=== PATIENT | male | born 1950 | race African-American/Black ===

== ENCOUNTER 2018-12-04 10:45 | Inpatient (IN) | payer OTHER ==
--- NOTE | 2018-12-04 13:49 | HP ---
Screened but not Admitted - Documentation of Visit Screened but not Admitted: Yes Left Prior to Completion of Assessment: No Insurance Authorization Denied: No Level of Care Recommended at this Time: ER Evaluation/Care Additional Information/Explanation: this 67 years old male with history of alcohol dependence,present in [facility] for evaluation,patient is intoxicated,alter mental status,unable to give information,unsteady gait,emi is 0.435,bp 122/78, p90,r18,t98.8,. patient was transferred to er at [facility] for evaluation,treatment, stabilization,. to be transported by [facility],dr Pack informed, . need medical clearance
[2018-12-04 20:42] VITALS: BMI 27.3
--- NOTE | 2018-12-04 21:27 | HP ---
CIWA Score Nausea/Vomitin-Mild Nausea/No Vomiting Muscle Tremors: 6 Anxiety: 4-Mod. Anxious/Guarded Agitation: 4-Moderately Restless Paroxysmal Sweats: 3 Orientation: 2-Disoriented Date<2 days Tacttile Disturbances: 3-Moderate Itch/Numb/Burn Auditory Disturbances: 0-None Visual Disturbances: 2-Mild Sensitivity Headache: 2-Mild CIWA-Ar Total Score: 27 - Admission Criteria OASAS Guidelines: Admission for Medically Managed Detox: Requires at least one of the followin. CIWA greater than 12 2. Seizures within the past 24 hours 3. Delirium tremens within the past 24 hours 4. Hallucinations within the past 24 hours 5. Acute intervention needed for co occurring medical disorder 6. Acute intervention needed for co occurring psychiatric disorder 7. Severe withdrawal that cannot be handled at a lower level of care (continued vomiting, continued diarrhea, abnormal vital signs) requiring intravenous medication and/or fluids 8. Patient presents the following: Acute intervention needed for co-occurring med or psych disorder Admission Criteria Met: Admission criteria met Admission ROS [facility] Chief Complaint: SEEKING DETOX FOR C/O WORSENING WITHDRAWAL SX'S Allergies/Adverse Reactions: Allergies Allergy/AdvReac Type Severity Reaction Status Date / Time ibuprofen Allergy Severe Rash Verified 12/04/18 20:55 History of Present Illness: 67 Y.O. MALE WITH HX/O AQLCOHOLISM HERE FOR DETOX. CLIENT IS KNOWN TO THIS PROGRAM. LAST HERE 2014. PRESENT TODAY WITH C/O WORSENING WITHDRAWAL SX'S CIWA 27 AFTER RETURNING FROM [facility]. HE WAS SENT THERE EARLIER FOR ALCOHOL INTOXICATION [place] 0.435 REPEAT NOW 0.257, SLURRED SPEECH AND INABILITY TO WALK. HE HAS SINCE BEEN CLEARED AND RETURNED. REPORTS LONGEST CLEAN TIME 5 YEARS, RELAPSING ABOUT 5 YEARS AGO. DENIES ANY RECENT CLEAN TIME. PMHX- HTN, PACE MAKER , DEPRESSION. DENIES PAST/PRESNT SI/HI, AVH AND SEIZURE D/O. CURRENTLY LIVES WITH [place], SSI., DENIES LEGALS. Exam Limitations: No Limitations - Ebola screening Have you traveled outside of the country in the last 21 days: No Have you had contact with anyone from an Ebola affected area: No Have you been sick,other than usual withdrawal symptoms: No Do you have a fever: No - Review of Systems Constitutional: Chills, Loss of Appetite, Night Sweats, Changes in sleep, Weakness (GENERALIZED) EENT: reports: Blurred Vision (WEARS EYE GLASSES), Dental Problems (MISSING TEETH) Respiratory: reports: No Symptoms reported Cardiac: reports: No Symptoms Reported GI: reports: Nausea, Poor Appetite, Poor Fluid Intake, Vomiting : reports: No Symptoms Reported Musculoskeletal: reports: Joint Pain Integumentary: reports: Flushing Neuro: reports: Headache, Numbness, Tingling, Tremors, Weakness (BLE), Unsteady Gait (AMBUALTES WITH CANE) Endocrine: reports: No Symptoms Reported Hematology: reports: No Symptoms Reported Psychiatric: reports: Orientated x3, Anxious, Depressed Other Systems: Reviewed and Negative Patient History - Patient Medical History Hx Anemia: No Hx Asthma: No Hx Chronic Obstructive Pulmonary Disease (COPD): No Hx Cancer: No Hx Cardiac Disorders: Yes (pacemaker in place) Hx Congestive Heart Failure: No Hx Hypertension: Yes (norvasc) Hx Hypercholesterolemia: No Hx Pacemaker: Yes (for bradycardia sine [address] [facility]) HX Cerebrovascular Accident: No Hx Seizures: No Hx Dementia: No Hx Diabetes: No Hx Gastrointestinal Disorders: No Hx Liver Disease: No Hx Genitourinary Disorders: No Hx Sexually Transmitted Disorders: No Hx Renal Disease (ESRD): No Hx Thyroid Disease: No Hx Human Immunodeficiency Virus (HIV): No (last 12/21/13) Hx Hepatitis C: Yes (tx'ed 2 yrs ago ( Treated for it with interferon))) Hx Depression: Yes Hx Suicide Attempt: No Hx Bipolar Disorder: No Hx Schizophrenia: No - Patient Surgical History Past Surgical History: Yes Hx Neurologic Surgery: No Hx Cataract Extraction: No Hx Cardiac Surgery: Yes (PACE MAKER, 1997, 2005) Hx Lung Surgery: No Hx Breast Surgery: No Hx Breast Biopsy: No Hx Abdominal Surgery: No Hx Appendectomy: No Hx Cholecystectomy: No Hx Genitourinary Surgery: No Hx Section: No Hx Orthopedic Surgery: No Anesthesia Reaction: No - PPD History Previous Implant?: Yes Documented Results: Positive w/proof Implanted On Prior R Admission?: Yes Date: 11/14/12 Results: POSITIVE PPD to be Administered?: No - Smoking Cessation Smoking history: Former smoker Have you smoked in the past 12 months: No Aproximately how many cigarettes per day: 0 If you are a former smoker, when did you quit?: 10 YEARS AGO Cigars Per Day: 0 Hx Chewing Tobacco Use: No Initiated information on smoking cessation: No - Substance & Tx. History Hx Alcohol Use: Yes Hx Substance Use: Yes Substance Use Type: Alcohol Hx Substance Use Treatment: Yes ([facility]) - Substances Abused Alcohol Route: Oral Frequency: Daily Amount used: 6 CANS OF BEER, 3 PINTS OF VODKA Age of first use: 17 Date of Last Use: 12/04/18 Family Disease History - Family Disease History Family Disease History: Diabetes: Brother, Heart Disease: Brother, Other: Sister (alcoholic) Admission Physical Exam [facility] - Vital Signs Vital Signs: Vital Signs - 24 hr 12/04/18 20:35 Temperature 98.8 F Pulse Rate 93 H Respiratory 18 Rate Blood Pressure 132/84 - Physical General Appearance: Yes: Appropriately Dressed, Moderate Distress, Tremorous, Irritable, Sweating (FLUSHED), Anxious, Other (MALODUROUS) HEENTM: Yes: EOMI, Normocephalic, Normal Voice, NITIN, Pharynx Normal, Other ( POOR DENTITION) Respiratory: Yes: Chest Non-Tender, Lungs Clear, Normal Breath Sounds, No Respiratory Distress, No Accessory Muscle Use, Other (LEFT C/W PACEMEAKER) Neck: Yes: No masses,lesions,Nodules, Supple, Trachea in good position Breast: Yes: Breast Exam Deferred Cardiology: Yes: Regular Rhythm, Regular Rate, S1, S2 Abdominal: Yes: Normal Bowel Sounds, Non Tender, Soft Genitourinary: Yes: Other (NO C/O) Back: Yes: Normal Inspection Musculoskeletal: Yes: full range of Motion, Joint Stiffness, Other (UNSTEADY GAIT AMBUALTED WITH CANE) Extremities: Yes: Normal Capillary Refill, Normal Range of Motion, Non-Tender, Tremors Neurological: Yes: Fully Oriented, Alert, Depressed Affect Integumentary: Yes: Warm, Other (FLUSHED) Lymphatic: Yes: Within Normal Limits - Diagnostic (1) Alcohol dependence with uncomplicated withdrawal Current Visit: Yes Status: Acute (2) History of positive PPD Current Visit: Yes Status: Acute (3) Pacemaker Current Visit: Yes Status: Acute (4) At risk for dehydration due to poor fluid intake Current Visit: Yes Status: Acute (5) Substance induced mood disorder Current Visit: Yes Status: Acute (6) Essential hypertension Current Visit: No Status: Active Cleared for Admission [facility] - Detox or Rehab [facility] Level of Care: Medically Managed Detox Regimen/Protocol: Librium Claeared for Rehab Admission: No [facility] Breath Alcohol Content Breath Alcohol Content: 0.257 Urine Drug Screen - Results Drug Screen Negative: Yes
[2018-12-04] MEDS ORDERED: MAGNESIUM HYDROX 2400MG/30ML ORAL SUSPENSION 30 ML CUP PO PRN (21:44)
[2018-12-04] MEDS ORDERED: P-EPHED 60MG/TRIPROLIDI 2.5MG TABLET PO PRN (21:44)
[2018-12-04] MEDS ORDERED: MENTHOL/PHENOL 1 EACH UD MM PRN (21:44)
[2018-12-04] MEDS ORDERED: MAG HYDROX/AL HYDROX/SIMETH 30 ML UNIT-DOSE CUP PO PRN (21:44)
[2018-12-04] MEDS ORDERED: LOPERAMIDE HCL 2 MG CAPSULE PO PRN (21:44)
[2018-12-04] MEDS ORDERED: guaiFENesin/D-METHORPHAN HB 10 ML UNIT-DOSE CUPS PO PRN (21:44)
[2018-12-04] MEDS ORDERED: MAGNESIUM CITRATE 300 ML BOTTLE PO PRN (21:44)
[2018-12-04] MEDS ORDERED: MELATONIN 5 MG TABLETS PO PRN (22:00)
[2018-12-04] MEDS: chlordiazePOXIDE HCL 25 MG CAPSULE PO SCH (22:37)
[2018-12-04] MEDS: ACETAMINOPHEN 325 MG TABLET (FP) PO PRN (22:39)
[2018-12-04] MEDS: THIAMINE HCL 100 MG TABLET (FP) PO SCH (22:46)
[2018-12-05] MEDS: chlordiazePOXIDE HCL 25 MG CAPSULE PO PRN (03:09)
[2018-12-05 04:39] LABS: URINE APPEARANCE CLEAR; URINE BILIRUBIN NEGATIVE (<2.0 mg/dL); URINE COLOR LTYELLOW; URINE GLUCOSE (UA) NEGATIVE (NEGATIVE); URINE KETONE NEGATIVE (NEGATIVE); URINE LEUK ESTERASE NEGATIVE (NEGATIVE); URINE NITRITE NEGATIVE (NEGATIVE); URINE PROTEIN NEGATIVE (NEGATIVE); URINE UROBILINOGEN NEGATIVE mg/dL (0.2-1.0)
[2018-12-05] MEDS: chlordiazePOXIDE HCL 25 MG CAPSULE PO SCH ×4 (05:14→22:14)
[2018-12-05] MEDS: ACETAMINOPHEN 325 MG TABLET (FP) PO PRN (07:28)
[2018-12-05] MEDS: hydrOXYzine PAMOATE 50 MG CAPSULE (FP) PO PRN (07:30)
[2018-12-05 10:32] LABS: HEMATOCRIT 42.5 % (35.4-49); HEMOGLOBIN 14.3 GM/dL (11.7-16.9); MCH 29.1 pg (25.7-33.7); MCHC 33.6 g/dl (32.0-35.9); MEAN CELL VOLUME 86.7 fl (80-96); MEAN PLT VOLUME 7.9 fl (7.5-11.1); PLATELET COUNT 231 K/MM3 (134-434); RBC 4.91 M/mm3 (4.00-5.60); RDW 15.4 % (11.9-15.9); WHITE BLOOD COUNT 3.2 K/mm3 (4.0-10.0)
[2018-12-05 10:49] LABS: ALBUMIN 4.1 g/dl (3.4-5.0); ALK PHOS 84 U/L (45-117); ANION GAP 7 MMOL/L (8-16); BILIRUBIN,TOTAL 0.5 mg/dL (0.2-1); BLOOD UREA NITROGEN 11 mg/dL (7-18); CALCIUM 9.6 mg/dL (8.5-10.1); CHLORIDE 107 mmol/L (98-107); CO2 32 mmol/L (21-32); CREATININE 0.7 mg/dL (0.55-1.3); GLUCOSE,RANDOM 78 mg/dL (74-106); POTASSIUM 4.1 mmol/L (3.5-5.1); SGOT/AST 19 U/L (15-37); SGPT/ALT 17 U/L (13-61); SODIUM 146 mmol/L (136-145); TOT PROT 7.8 g/dl (6.4-8.2)
[2018-12-05] MEDS: PRENATAL VITAMINS W/ FOLIC ACID TABLET (FP) PO SCH (10:56)
--- NOTE | 2018-12-05 14:18 | EKG ---
Test Reason : Blood Pressure : / mmHG Vent. Rate : 085 BPM Atrial Rate : 085 BPM P-R Int : 154 ms QRS Dur : 070 ms QT Int : 370 ms P-R-T Axes : 054 -24 013 degrees QTc Int : 440 ms POOR DATA QUALITY, INTERPRETATION MAY BE ADVERSELY AFFECTED NORMAL SINUS RHYTHM NORMAL ECG NO PREVIOUS ECGS AVAILABLE Confirmed by MADISYN SAM MD ([id number]) on 12/05/2018 2:17:58 PM Referred By: Confirmed By:MADISYN SAM MD
--- NOTE | 2018-12-05 16:29 | PN ---
S CIWA - CIWA Score Nausea/Vomitin-No Nausea/No Vomiting Muscle Tremors: 3 Anxiety: 0-No Anxiety, at Ease Agitation: 0-Normal Activity Paroxysmal Sweats: 3 Orientation: 2-Disoriented Date<2 days Tacttile Disturbances: 2-Mild Itch/Numbness/Burn Auditory Disturbances: 0-None Visual Disturbances: 0-None Headache: 3-Moderate CIWA-Ar Total Score: 13 S Progress Note (SOAP) Subjective: Interrupted Sleep, H/A, Body Aches, Sweating, Tremors. Objective: PATIENT A & O X 2 (UNCERTAIN ABOUT CURRENT DAY / DATE). PATIENT OBSERVED AMBULATING ON UNIT. IN NO ACUTE DISTRESS. 12/05/18 16:30 Vital Signs Temperature 98.1 F 12/05/18 13:24 Pulse Rate 76 12/05/18 13:30 Respiratory Rate 18 12/05/18 13:24 Blood Pressure 97/66 12/05/18 13:24 O2 Sat by Pulse Oximetry (%) Laboratory Tests 12/04/18 12/05/18 12/05/18 21:51 07:00 07:00 WBC 3.2 L RBC 4.91 Hgb 14.3 Hct 42.5 MCV 86.7 MCH 29.1 MCHC 33.6 RDW 15.4 Plt Count 231 MPV 7.9 Sodium 146 H Potassium 4.1 Chloride 107 Carbon Dioxide 32 Anion Gap 7 L BUN 11 Creatinine 0.7 Creat Clearance w eGFR > 60 Random Glucose 78 Calcium 9.6 Total Bilirubin 0.5 AST 19 ALT 17 Alkaline Phosphatase 84 Total Protein 7.8 Albumin 4.1 Urine Color Ltyellow Urine Appearance Clear Urine pH 5.0 Ur Specific [place] 1.010 Urine Protein Negative Urine Glucose (UA) Negative Urine Ketones Negative Urine Blood Negative Urine Nitrite Negative Urine Bilirubin Negative Urine Urobilinogen Negative Ur Leukocyte Esterase Negative RPR Titer 12/05/18 07:00 WBC RBC Hgb Hct MCV MCH MCHC RDW Plt Count MPV Sodium Potassium Chloride Carbon Dioxide Anion Gap BUN Creatinine Creat Clearance w eGFR Random Glucose Calcium Total Bilirubin AST ALT Alkaline Phosphatase Total Protein Albumin Urine Color Urine Appearance Urine pH Ur Specific [place] Urine Protein Urine Glucose (UA) Urine Ketones Urine Blood Urine Nitrite Urine Bilirubin Urine Urobilinogen Ur Leukocyte Esterase RPR Titer Nonreactive LABS NOTED. PATIENT HAS HAD LOW WBC COUNTS ON PREVIOUS ADMISSIONS. 12/05/18 16:32 Assessment: 12/05/18 16:31 WITHDRAWAL SYMPTOMS. LEUKOPENIA. 12/05/18 16:32 Plan: CONTINUE DETOX.
[2018-12-05] MEDS: THIAMINE HCL 100 MG TABLET (FP) PO SCH (22:14)
[2018-12-06] MEDS: chlordiazePOXIDE HCL 25 MG CAPSULE PO SCH ×3 (05:30→17:21)
[2018-12-06] MEDS: PRENATAL VITAMINS W/ FOLIC ACID TABLET (FP) PO SCH (10:25)
[2018-12-06] MEDS: chlordiazePOXIDE HCL 25 MG CAPSULE PO PRN (12:06)
--- NOTE | 2018-12-06 13:26 | PN ---
S CIWA - CIWA Score Nausea/Vomitin Muscle Tremors: 3 Anxiety: 2 Agitation: 1-Slight > Activity Paroxysmal Sweats: 2 Orientation: 0-Oriented Tacttile Disturbances: 1-Very Mild Itch/Numbness Auditory Disturbances: 0-None Visual Disturbances: 0-None Headache: 0-None Present CIWA-Ar Total Score: 11 S Progress Note (SOAP) Subjective: interrupted sleep, sweats, soft stool Objective: 12/06/18 13:25 Vital Signs Temperature 97.7 F 12/06/18 09:46 Pulse Rate 73 12/06/18 09:46 Respiratory Rate 18 12/06/18 09:46 Blood Pressure 111/72 12/06/18 09:46 O2 Sat by Pulse Oximetry (%) Vital Signs Temperature 97.7 F 12/06/18 09:46 Pulse Rate 73 12/06/18 09:46 Respiratory Rate 18 12/06/18 09:46 Blood Pressure 111/72 12/06/18 09:46 O2 Sat by Pulse Oximetry (%) Vital Signs Temperature 97.7 F 12/06/18 09:46 Pulse Rate 73 12/06/18 09:46 Respiratory Rate 18 12/06/18 09:46 Blood Pressure 111/72 12/06/18 09:46 O2 Sat by Pulse Oximetry (%) 12/06/18 13:26 Laboratory Tests 12/04/18 12/05/18 12/05/18 21:51 07:00 07:00 WBC 3.2 L RBC 4.91 Hgb 14.3 Hct 42.5 MCV 86.7 MCH 29.1 MCHC 33.6 RDW 15.4 Plt Count 231 MPV 7.9 Sodium 146 H Potassium 4.1 Chloride 107 Carbon Dioxide 32 Anion Gap 7 L BUN 11 Creatinine 0.7 Creat Clearance w eGFR > 60 Random Glucose 78 Calcium 9.6 Total Bilirubin 0.5 AST 19 ALT 17 Alkaline Phosphatase 84 Total Protein 7.8 Albumin 4.1 Urine Color Ltyellow Urine Appearance Clear Urine pH 5.0 Ur Specific [place] 1.010 Urine Protein Negative Urine Glucose (UA) Negative Urine Ketones Negative Urine Blood Negative Urine Nitrite Negative Urine Bilirubin Negative Urine Urobilinogen Negative Ur Leukocyte Esterase Negative RPR Titer 12/05/18 07:00 WBC RBC Hgb Hct MCV MCH MCHC RDW Plt Count MPV Sodium Potassium Chloride Carbon Dioxide Anion Gap BUN Creatinine Creat Clearance w eGFR Random Glucose Calcium Total Bilirubin AST ALT Alkaline Phosphatase Total Protein Albumin Urine Color Urine Appearance Urine pH Ur Specific [place] Urine Protein Urine Glucose (UA) Urine Ketones Urine Blood Urine Nitrite Urine Bilirubin Urine Urobilinogen Ur Leukocyte Esterase RPR Titer Nonreactive pt aox3 in nad, sitting in bed eatting breakfast Assessment: 12/06/18 13:27 withdrawal sx's Plan: cont. detox increase fluids
[2018-12-06] MEDS: hydrOXYzine PAMOATE 50 MG CAPSULE (FP) PO PRN (22:13)
[2018-12-06] MEDS: chlordiazePOXIDE 5 MG CAPSULE PO SCH (22:14)
[2018-12-06] MEDS: THIAMINE HCL 100 MG TABLET (FP) PO SCH (22:15)
[2018-12-07] MEDS: hydrOXYzine PAMOATE 50 MG CAPSULE (FP) PO PRN ×3 (02:13→15:24)
[2018-12-07] MEDS: chlordiazePOXIDE 5 MG CAPSULE PO SCH ×3 (05:29→16:46)
[2018-12-07] MEDS: PRENATAL VITAMINS W/ FOLIC ACID TABLET (FP) PO SCH (10:04)
--- NOTE | 2018-12-07 10:52 | PN ---
S CIWA - CIWA Score Nausea/Vomitin Muscle Tremors: 2 Anxiety: 2 Agitation: 2 Paroxysmal Sweats: 1-Minimal Palms Moist Orientation: 1-Uncertain about Date Tacttile Disturbances: 2-Mild Itch/Numbness/Burn Auditory Disturbances: 1-Very Mild Visual Disturbances: 1-Very Mild Sensitivity Headache: 1-Very Mild CIWA-Ar Total Score: 15 BHS Progress Note (SOAP) Subjective: Irritable and anxious about staying, requesting AMA, chronic knee pain, mild tremors and interrupted sleep Objective: 12/07/18 10:49 Vital Signs 12/07/18 12/07/18 06:41 09:17 Temperature 96.8 F L 97.7 F Pulse Rate 77 84 Respiratory 20 16 Rate Blood Pressure 133/98 118/79 Laboratory Last Values WBC 3.2 K/mm3 (4.0-10.0) L 12/05/18 07:00 RBC 4.91 M/mm3 (4.00-5.60) 12/05/18 07:00 Hgb 14.3 GM/dL (11.7-16.9) 12/05/18 07:00 Hct 42.5 % (35.4-49) 12/05/18 07:00 MCV 86.7 fl (80-96) 12/05/18 07:00 MCH 29.1 pg (25.7-33.7) 12/05/18 07:00 MCHC 33.6 g/dl (32.0-35.9) 12/05/18 07:00 RDW 15.4 % (11.9-15.9) 12/05/18 07:00 Plt Count 231 K/MM3 (134-434) 12/05/18 07:00 MPV 7.9 fl (7.5-11.1) 12/05/18 07:00 Sodium 146 mmol/L (136-145) H 12/05/18 07:00 Potassium 4.1 mmol/L (3.5-5.1) 12/05/18 07:00 Chloride 107 mmol/L (98-107) 12/05/18 07:00 Carbon Dioxide 32 mmol/L (21-32) 12/05/18 07:00 Anion Gap 7 MMOL/L (8-16) L 12/05/18 07:00 BUN 11 mg/dL (7-18) 12/05/18 07:00 Creatinine 0.7 mg/dL (0.55-1.3) 12/05/18 07:00 Creat Clearance w eGFR > 60 (>60) 12/05/18 07:00 Random Glucose 78 mg/dL (74-106) 12/05/18 07:00 Calcium 9.6 mg/dL (8.5-10.1) 12/05/18 07:00 Total Bilirubin 0.5 mg/dL (0.2-1) 12/05/18 07:00 AST 19 U/L (15-37) 12/05/18 07:00 ALT 17 U/L (13-61) 12/05/18 07:00 Alkaline Phosphatase 84 U/L (45-117) 12/05/18 07:00 Total Protein 7.8 g/dl (6.4-8.2) 12/05/18 07:00 Albumin 4.1 g/dl (3.4-5.0) 12/05/18 07:00 Urine Color Ltyellow 12/04/18 21:51 Urine Appearance Clear 12/04/18 21:51 Urine pH 5.0 (5.0-8.0) 12/04/18 21:51 Ur Specific [place] 1.010 (1.010-1.035) 12/04/18 21:51 Urine Protein Negative (NEGATIVE) 12/04/18 21:51 Urine Glucose (UA) Negative (NEGATIVE) 12/04/18 21:51 Urine Ketones Negative (NEGATIVE) 12/04/18 21:51 Urine Blood Negative (NEGATIVE) 12/04/18 21:51 Urine Nitrite Negative (NEGATIVE) 12/04/18 21:51 Urine Bilirubin Negative (<2.0 mg/dL) 12/04/18 21:51 Urine Urobilinogen Negative mg/dL (0.2-1.0) 12/04/18 21:51 Ur Leukocyte Esterase Negative (NEGATIVE) 12/04/18 21:51 RPR Titer Nonreactive (NONREACTIVE) 12/05/18 07:00 Labs noted, no panic values Assessment: 12/07/18 10:50 Withdrawal sx Plan: Continue detox Reassured and encouraged to stay till completion of program
[2018-12-07] MEDS: chlordiazePOXIDE HCL 25 MG CAPSULE PO PRN (13:50)
[2018-12-07] MEDS: chlordiazePOXIDE HCL 10 MG CAPSULE PO SCH (22:09)
[2018-12-07] MEDS: THIAMINE HCL 100 MG TABLET (FP) PO SCH (22:09)
[2018-12-08] MEDS: chlordiazePOXIDE HCL 10 MG CAPSULE PO SCH (06:11)
[2018-12-08 06:53] VITALS: BP 116/73; PULSE 73; TEMP 97.9
--- NOTE | 2018-12-08 15:49 | DS ---
[facility] Detox Discharge Summary Admission Date: 12/04/18 Discharge Date: 12/08/18 - History Present History: Alcohol Dependence Pertinent Past History: pt left AMA- did not complete alcohol detox - Physical Exam Results Vital Signs: Vital Signs Temperature 97.9 F 12/08/18 06:52 Pulse Rate 73 12/08/18 06:52 Respiratory Rate 18 12/08/18 06:52 Blood Pressure 116/73 12/08/18 06:52 O2 Sat by Pulse Oximetry (%) - Treatment Hospital Course: Detox Protocol Followed - Medication Discharge Medications: Ambulatory Orders Amlodipine Besylate [Norvasc -] 10 mg PO DAILY 04/09/14 Aspirin [Aspirin EC] 81 mg PO DAILY 04/09/14 Naproxen [Naprosyn -] 500 mg PO BID 04/09/14 - AMA Did Patient Leave Against Medical Advice: Yes
== END 2018-12-08 07:05 | disposition home or self-care (01) | DRG 775 ==
LOC: YASAS 10:45 → Y6N 21:41
PROVIDERS: ADMIT Neuromusculoskeletal Medicine & OMM; ATTEND Neuromusculoskeletal Medicine & OMM
PROC: HZ2ZZZZ Detoxification Services for Substance Abuse Treatment (ICD-10-PCS; principal; 2018-12-04)
DX: F10.230 Alcohol dependence with withdrawal, uncomplicated (principal); F19.24 Other psychoactive substance dependence with psychoactive substance-induced mood disorder; I10 Essential (primary) hypertension; D72.819 Decreased white blood cell count, unspecified; M13.862 Other specified arthritis, left knee; B18.2 Chronic viral hepatitis C; R76.11 Nonspecific reaction to tuberculin skin test without active tuberculosis; R63.8 Other symptoms and signs concerning food and fluid intake; Z87.891 Personal history of nicotine dependence; Z95.0 Presence of cardiac pacemaker
CPT/HCPCS: 36415; 80053; 81003; 85027; 86593; 93005; 93010

== ENCOUNTER 2018-12-04 12:48 | Emergency (ER) | payer MEDICARE, OTHER ==
[2018-12-04 13:00] VITALS: TEMP 97.4; BMI 25.0
--- NOTE | 2018-12-04 13:22 | PDOC ---
History of Present Illness - General Chief Complaint: Alcohol intoxication Stated Complaint: Alcohol intoxication Time Seen by Provider: 12/04/18 13:17 - History of Present Illness Initial Comments: 12/04/18 13:18 67 yo M with h/o HTN, EtoH dependence, pacemaker placement, who p/w Etoh intoxication. Patient BIBEMS from outside facility (2 [facility]), following attempt to undergo alcohol detoxm but told too intoxicated to undergo therapy. Patient denies Etoh today, but intoxicated at bedside. Patient denies complaints. Patient denies SI, HI, hallucinations, MCKEON, vision change, N/V, F,C, CP, SOB, urinary complaints, abdominal pain, diarrhea, constipation, lightheadedness, weakness, sensory changes. PMHx: as noted above ROS: as noted Allergies: Ibuprofen Past History - Past Medical History Allergies/Adverse Reactions: Allergies Allergy/AdvReac Type Severity Reaction Status Date / Time ibuprofen Allergy Severe Rash Verified 12/04/18 13:01 Home Medications: Ambulatory Orders Amlodipine Besylate [Norvasc -] 10 mg PO DAILY 04/09/14 Aspirin [Aspirin EC] 81 mg PO DAILY 04/09/14 Naproxen [Naprosyn -] 500 mg PO BID 04/09/14 Anemia: No Asthma: No Cancer: No Cardiac Disorders: Yes (pacemaker in place) CVA: No COPD: No CHF: No Dementia: No Diabetes: No GI Disorders: No Disorders: No HTN: Yes (norvasc) Hypercholesterolemia: No Kidney Stones: No Liver Disease: No Seizures: No Thyroid Disease: No - Surgical History Abdominal Surgery: No Appendectomy: No Cardiac Surgery: Yes (PACE MAKER, 1997, 2005) Cholecystectomy: No Lung Surgery: No Neurologic Surgery: No Orthopedic Surgery: No - Reproductive History Testicular Surgery: No - Suicide/Smoking/Psychosocial Hx Smoking History: Never smoked Have you smoked in the past 12 months: No Number of Cigarettes Smoked Daily: 0 If you are a former smoker, when did you quit?: 2 years ago Cigars Per Day: 0 Information on smoking cessation initiated: No 'Breaking Loose' booklet given: 05/18/14 Hx Alcohol Use: No Drug/Substance Use Hx: No Substance Use Type: Alcohol Hx Substance Use Treatment: Yes (multiple detox, rehab) Review of Systems - Review of Systems Comments:: 12/04/18 13:21 GENERAL/CONSTITUTIONAL: No fever or chills. No weakness. HEAD, EYES, EARS, NOSE AND THROAT: No change in vision. No ear pain or discharge. No sore throat. CARDIOVASCULAR: No chest pain or shortness of breath RESPIRATORY: No cough, wheezing, or hemoptysis. GASTROINTESTINAL: No nausea, vomiting, diarrhea or constipation. GENITOURINARY: No dysuria, frequency, or change in urination. MUSCULOSKELETAL: No joint or muscle swelling or pain. No neck or back pain. SKIN: No rash NEUROLOGIC: No headache, vertigo, loss of consciousness, or change in strength/ sensation. ENDOCRINE: No increased thirst. No abnormal weight change HEMATOLOGIC/LYMPHATIC: No anemia, easy bleeding, or history of blood clots. ALLERGIC/IMMUNOLOGIC: No hives or skin allergy. *Physical Exam - Vital Signs Last Vital Signs Temp Pulse Resp BP Pulse Ox 97.4 F L 76 16 115/89 100 12/04/18 12:50 12/04/18 12:50 12/04/18 12:50 12/04/18 12:50 12/04/18 12:50 - Physical Exam Comments: 12/04/18 13:21 GENERAL: Awake, alert, in no acute distress. Follows Commands. Slurred Speech HEAD: No signs of trauma, normocephalic, atraumatic EYES: PERRLA, EOMI, sclera anicteric, conjunctiva clear ENT: Auricles normal inspection, hearing grossly normal, nares patent, oropharynx clear without exudates. Moist mucosa NECK: Normal ROM, supple, no lymphadenopathy, JVD, or masses LUNGS: No distress, speaks full sentences, clear to auscultation bilaterally HEART: Regular rate and rhythm, normal S1 and S2, no murmurs, rubs or gallops, peripheral pulses normal and equal bilaterally. ABDOMEN: Soft, nontender, normoactive bowel sounds. No guarding, no rebound. No masses EXTREMITIES : Normal inspection, Normal range of motion, no edema. No clubbing or cyanosis. NEUROLOGICAL: Cranial nerves II through XII grossly intact. No focal sensorimotor deficits SKIN: Warm, Dry, normal turgor, no rashes or lesions noted Moderate Sedation - Procedure Monitoring Vital Signs: Procedure Monitoring Vital Signs Temperature 97.4 F L 12/04/18 12:50 Pulse Rate 76 12/04/18 12:50 Respiratory Rate 16 12/04/18 12:50 Blood Pressure 115/89 12/04/18 12:50 O2 Sat by Pulse Oximetry (%) 100 12/04/18 12:50 ED Treatment Course - LABORATORY CBC & Chemistry Diagram: 12/04/18 15:00 12/04/18 15:00 Medical Decision Making - Medical Decision Making 12/04/18 13:21 67 yo M with h/o HTN, EtoH dependence, pacemaker placement, who p/w Etoh intoxication. Vitals wnl, AF, A&O to self. Physical exam with slurred speech. No evidence of withdrawal, normotensive, absent fasciculations/tongue, tremors, anxiety, hallucinations, convulsions. Patient pending sobriety. Will provide IVF and reassess. ED Course: 12/04/18 13:58 Banana Bag 12/04/18 14:06 CBC,CMP, Etoh 12/04/18 14:56 Patient refusing blood draw Patient continually attempting to ambulate from bed 1:1 observation for fall risk in setting of intoxication 12/04/18 16:49 CMP: Unremarkable Etoh: 384 12/04/18 18:54 Patient tolerating PO intake Ambulating w/out difficulty stable for d/c with return precautions *DC/Admit/Observation/Transfer Diagnosis at time of Disposition: Alcohol dependence - Discharge Dispostion Condition at time of disposition: Stable - Referrals - Patient Instructions Printed Discharge Instructions: DI for Alcohol Abuse Additional Instructions: Please return to the emergency department with any new or worsening symptoms or concerns. Please follow up with your primary care physician within 72 hours. - Post Discharge Activity - Attestations Physician Attestion: 12/04/18 13:21 I attest to the information provided in this note.
--- NOTE | 2018-12-04 13:33 | PDOC ---
Attending Attestation - HPI HPI: 12/04/18 14:02 The patient is a 67 year old male with a significant past medical history of HTN , EtoH dependence, pacemaker placement, who presents to the ED from [facility] for ETOH intoxication today. The patient states he was attempting to following undergo alcohol detox but told he is "too intoxicated to undergo therapy." P Patient denies complaints. Patient denies SI, HI, hallucinations, MCKEON, vision change, N/V, F,C, CP, SOB, urinary complaints, abdominal pain, diarrhea, constipation, lightheadedness, weakness, sensory changes. Allergies: ibuprofen - Physicial Exam PE: 12/04/18 14:04 GENERAL: (+) ETOH on breath. The patient is in no acute distress. HEAD: Normal with no signs of trauma. EYES: PERRLA, EOMI, sclera anicteric, conjunctiva clear. ENT: Ears normal, nares patent, oropharynx clear without exudates. Moist mucous membranes. NECK: Normal range of motion, supple without lymphadenopathy, JVD, or masses. LUNGS: Breath sounds equal, clear to auscultation bilaterally. No wheezes, and no crackles. HEART:Regular rate and rhythm, normal S1 and S2 without murmur, rub or gallop. ABDOMEN: Soft, nontender, normoactive bowel sounds. No guarding, no rebound. No masses palpable. EXTREMITIES: Normal range of motion, no edema. No clubbing or cyanosis. No erythema, or tenderness. NEUROLOGICAL: Cranial nerves II through XII grossly intact. Normal speech. No focal neurological deficits. MUSCULOSKELETAL: Back non-tender to palpation, no CVA tenderness SKIN: Warm, Dry, normal turgor, no rashes or lesions noted. - Medical Decision Making 12/04/18 14:04 Documentation prepared by Tonja Wolfe, acting as veterinary medical officer for Lilliam Barton MD <Tonja Wolfe - Last Filed: 12/04/18 14:02> - Resident Resident Name: Nasim Cardenas - ED Attending Attestation I have performed the following: I have examined & evaluated the patient, The case was reviewed & discussed with the resident, I agree w/resident's findings & plan, Exceptions are as noted - Medical Decision Making 12/04/18 15:02 67 yo M presenting to the ER from [facility] due to intoxication Pt currently has no complaints Pt requesting to leave the ER (+) AOB RRR CTA Pt moving all extremities Attempting to get out of bed 12/04/18 17:15 Laboratory Tests 12/04/18 12/04/18 12/04/18 14:25 15:00 15:00 WBC 3.4 L Hgb 15.0 Hct 44.0 Plt Count 229 Neutrophils % 34.0 L Lymphocytes % 54.2 H BUN 8 Creatinine 0.8 Alcohol, Quantitative 384.4 H 12/05/18 12:10 Pt signed out to overnight team -pending demonstration of sobriety <Lilliam Barton - Last Filed: 12/05/18 12:11>
[2018-12-04] MEDS ORDERED: FOLIC ACID INJECTION - 1 MG, THIAMINE HCL 100 MG, MULTIVIT INJECTION ADULT 10 ML in SOD... IVPB ONE (13:56)
[2018-12-04 15:47] LABS: BASO % 0.9 % (0-2.0); LYMPH % 54.2 % (8-40); MCH 29.5 pg (25.7-33.7); MCHC 34.1 g/dl (32.0-35.9); MEAN CELL VOLUME 86.4 fl (80-96); MEAN PLT VOLUME 7.3 fl (7.5-11.1); MONO % 7.9 % (3.8-10.2); PLATELET COUNT 229 K/MM3 (134-434); RBC 5.09 M/mm3 (4.00-5.60); RDW 15.1 % (11.9-15.9); WHITE BLOOD COUNT 3.4 K/mm3 (4.0-10.0)
[2018-12-04 16:28] LABS: ALBUMIN 4.2 g/dl (3.4-5.0); ALK PHOS 91 U/L (45-117); ANION GAP 8 MMOL/L (8-16); BILIRUBIN,TOTAL 0.3 mg/dL (0.2-1); BLOOD UREA NITROGEN 8 mg/dL (7-18); CALCIUM 8.6 mg/dL (8.5-10.1); CHLORIDE 107 mmol/L (98-107); CO2 31 mmol/L (21-32); CREATININE 0.8 mg/dL (0.55-1.3); GLUCOSE,RANDOM 85 mg/dL (74-106); POTASSIUM 4.1 mmol/L (3.5-5.1); SGOT/AST 23 U/L (15-37); SGPT/ALT 19 U/L (13-61); SODIUM 145 mmol/L (136-145); TOT PROT 8.1 g/dl (6.4-8.2)
[2018-12-04 17:57] VITALS: BP 106/73; PULSE 80
== END 2018-12-04 19:55 | disposition home or self-care (01) ==
LOC: JER 12:48
DX: F10.20 Alcohol dependence, uncomplicated (principal); I10 Essential (primary) hypertension; Z95.0 Presence of cardiac pacemaker
CPT/HCPCS: 36415; 80053; 80307; 85025; 99283-25; J7030

== ENCOUNTER 2019-09-06 16:25 | Inpatient (IN) | payer OTHER ==
[2019-09-06 18:39] VITALS: BMI 26.7
--- NOTE | 2019-09-06 21:34 | HP ---
CIWA Score Nausea/Vomitin-No Nausea/No Vomiting Muscle Tremors: 4-Moderate,w/Arms Extend Anxiety: 4-Mod. Anxious/Guarded Agitation: 4-Moderately Restless Paroxysmal Sweats: 3 Orientation: 3-Disoriented Date>2 days Tacttile Disturbances: 3-Moderate Itch/Numb/Burn (itching) Auditory Disturbances: 0-None Visual Disturbances: 3-Moderate Sensitivity (to light) Headache: 0-None Present CIWA-Ar Total Score: 24 - Admission Criteria OASAS Guidelines: Admission for Medically Managed Detox: Requires at least one of the followin. CIWA greater than 12 2. Seizures within the past 24 hours 3. Delirium tremens within the past 24 hours 4. Hallucinations within the past 24 hours 5. Acute intervention needed for co occurring medical disorder 6. Acute intervention needed for co occurring psychiatric disorder 7. Severe withdrawal that cannot be handled at a lower level of care (continued vomiting, continued diarrhea, abnormal vital signs) requiring intravenous medication and/or fluids 8. Admitting History and Physical - Smoking History Smoking history: Never smoked Have you smoked in the past 12 months: No Aproximately how many cigarettes per day: 0 If you are a former smoker, when did you quit?: 2 years ago - Alcohol/Substance Use Hx Alcohol Use: No Admission ROS [facility] - [facility] Chief Complaint: c/o withdrawal sx's Allergies/Adverse Reactions: Allergies Allergy/AdvReac Type Severity Reaction Status Date / Time ibuprofen Allergy Intermediate Rash Verified 09/06/19 18:34 History of Present Illness: 68 Y.O. MALE WITH HX/O ALCOHOLISM HERE FOR DETOX. CLIENT IS KNOWN TO THIS PROGRAM. LAST HERE 11/2018. PRESENT TODAY WITH C/O WORSENING WITHDRAWAL SX'S CIWA 24 REPORTS DAILY ALCOHOL INTAKE. DRINKS ALL DAY. LAST USE EARLIER TODAY POOR HISOTRIAN DUE TO INTOXICATION WITH ONSET OF WITHDRAWAL SX'S. REPORTS LONGEST CLEAN TIME 5 YEARS, RELAPSING ABOUT 5 YEARS AGO. DENIES ANY RECENT CLEAN TIME. PMHX- HTN, PACE MAKER, DEPRESSION. DENIES PAST/PRESNT SI/HI, AVH AND SEIZURE D/O. CURRENTLY LIVES WITH SIBLING, SSI., DENIES LEGALS. Exam Limitations: Intoxication (CLINCALLY STABLE) - Ebola screening Have you traveled outside of the country in the last 21 days: No Have you had contact with anyone from an Ebola affected area: No Have you been sick,other than usual withdrawal symptoms: No Do you have a fever: No - Review of Systems Constitutional: Chills, Loss of Appetite, Night Sweats, Changes in sleep EENT: reports: Blurred Vision (GLASSES), Dental Problems (MISSING TEETH) Respiratory: reports: No Symptoms reported Cardiac: reports: No Symptoms Reported GI: reports: Poor Appetite, Poor Fluid Intake : reports: No Symptoms Reported Musculoskeletal: reports: No Symptoms Reported Integumentary: reports: Dryness Neuro: reports: Tremors, Other (BLACK OYUTS) Endocrine: reports: No Symptoms Reported Hematology: reports: No Symptoms Reported Psychiatric: reports: Orientated x3, Agitated (IRRITBALE), Anxious, Depressed ( DENIES SI) Other Systems: Reviewed and Negative Patient History - Patient Medical History Hx Anemia: No Hx Asthma: No Hx Chronic Obstructive Pulmonary Disease (COPD): No Hx Cancer: No Hx Cardiac Disorders: Yes (pacemaker in place) Hx Congestive Heart Failure: No Hx Hypertension: Yes (norvas) Hx Hypercholesterolemia: No Hx Pacemaker: Yes (for bradycardia sine 1997 at [facility]) HX Cerebrovascular Accident: No Hx Seizures: No Hx Dementia: No Hx Diabetes: No Hx Gastrointestinal Disorders: No Hx Liver Disease: No Hx Genitourinary Disorders: No Hx Sexually Transmitted Disorders: No Hx Renal Disease (ESRD): No Hx Thyroid Disease: No Hx Human Immunodeficiency Virus (HIV): No (last 12/21/13) Hx Hepatitis C: Yes (tx'ed 2 yrs ago ( Treated for it with interferon))) Hx Depression: No Hx Suicide Attempt: No Hx Bipolar Disorder: No Hx Schizophrenia: No - Patient Surgical History Past Surgical History: Yes Hx Neurologic Surgery: No Hx Cataract Extraction: No Hx Cardiac Surgery: Yes (PACE MAKER, 1997, 2005) Hx Lung Surgery: No Hx Breast Surgery: No Hx Breast Biopsy: No Hx Abdominal Surgery: No Hx Appendectomy: No Hx Cholecystectomy: No Hx Genitourinary Surgery: No Hx Section: No Hx Orthopedic Surgery: No Anesthesia Reaction: No - PPD History Previous Implant?: Yes Documented Results: Positive w/proof Implanted On Prior R Admission?: Yes Date: 11/14/12 Results: 15 mm PPD to be Administered?: No - Smoking Cessation Smoking history: Never smoked Have you smoked in the past 12 months: No Aproximately how many cigarettes per day: 0 If you are a former smoker, when did you quit?: 2 years ago Cigars Per Day: 0 Hx Chewing Tobacco Use: No Initiated information on smoking cessation: No - Substance & Tx. History Hx Alcohol Use: Yes Hx Substance Use: Yes Substance Use Type: Alcohol Hx Substance Use Treatment: Yes ([facility]) - Substances abused Alcohol Substance route: Oral Frequency: Daily Amount used: 3-4 pints of vodka Age of first use: 17 Date of last use: 09/06/19 Admission Physical Exam [facility] - Vital Signs Vital Signs: Vital Signs - 24 hr 09/06/19 09/06/19 18:30 19:30 Temperature 97.3 F L 97.3 F L Pulse Rate 101 H 101 H Respiratory 18 18 Rate Blood Pressure 133/86 133/86 - Physical General Appearance: Yes: Moderate Distress, Alcohol on Breath, Intoxicated, Tremorous, Irritable, Anxious HEENTM: Yes: EOMI, Normocephalic, Normal Voice, NITIN, Pharynx Normal, Other ( MISSING TEETH) Respiratory: Yes: Chest Non-Tender, Lungs Clear, Normal Breath Sounds, No Respiratory Distress, No Accessory Muscle Use Neck: Yes: No masses,lesions,Nodules, Supple, Trachea in good position Breast: Yes: Breasts Symetrical Cardiology: Yes: Regular Rhythm, Regular Rate, S1, S2, Other (LEFT C/W PPM) Abdominal: Yes: Normal Bowel Sounds, Non Tender, Soft Genitourinary: Yes: Within Normal Limits Back: Yes: Normal Inspection, Other (ABRASIONS FROM SCRATCHING) Musculoskeletal: Yes: full range of Motion, Other (AMBULATES WITH CANE) Extremities: Yes: Normal Range of Motion, Non-Tender, Tremors, Pedal Edema (BLE PITTING EDEMA) Neurological: Yes: Alert, Motor Strength 5/5, Disoriented (INTOXICATED BUT CLINICALLY STABLE), Depressed Affect Integumentary: Yes: Dry, Warm Lymphatic: Yes: Within Normal Limits - Diagnostic (1) Essential hypertension Current Visit: Yes Status: Chronic (2) Alcohol dependence with uncomplicated withdrawal Current Visit: Yes Status: Acute (3) At risk for dehydration due to poor fluid intake Current Visit: Yes Status: Acute (4) History of positive PPD Current Visit: Yes Status: Chronic (5) Pacemaker Current Visit: Yes Status: Chronic (6) Substance induced mood disorder Current Visit: Yes Status: Suspected (7) Arthritis of left knee Current Visit: Yes Status: Chronic Cleared for Admission S - Detox or Rehab [facility] Level of Care: Medically Managed Detox Regimen/Protocol: Librium Claeared for Rehab Admission: No Breathalyzer - Breathalyzer Breathalyzer: 0.193 Urine Drug Screen - Test Device Lot number: [id number] Expiration date: 05/04/21 - Control Is test valid?: Yes - Results Drug screen NEGATIVE: Yes Inpatient Rehab Admission - Rehab Decision to Admit Inpatient rehab admission?: No
[2019-09-06] MEDS ORDERED: hydrOXYzine PAMOATE 25 MG CAPSULE (FP) PO PRN (21:44)
[2019-09-06] MEDS ORDERED: MAGNESIUM HYDROX 2400MG/30ML ORAL SUSPENSION 30 ML CUP PO PRN (21:44)
[2019-09-06] MEDS ORDERED: P-EPHED 60MG/TRIPROLIDI 2.5MG TABLET PO PRN (21:44)
[2019-09-06] MEDS ORDERED: guaiFENesin 200 MG/10 ML 10 ML UNIT-DOSE CUPS PO PRN (21:44)
[2019-09-06] MEDS ORDERED: ONDANSETRON *ODT* 4 MG TABLET SL PRN (21:44)
[2019-09-06] MEDS ORDERED: MAG HYDROX/AL HYDROX/SIMETH 30 ML UNIT-DOSE CUP PO PRN (21:44)
[2019-09-06] MEDS ORDERED: chlordiazePOXIDE HCL 25 MG CAPSULE PO PRN (21:44)
[2019-09-06] MEDS ORDERED: DICYCLOMINE HCL 10 MG CAPSULE PO PRN (21:44)
[2019-09-06] MEDS ORDERED: METHOCARBAMOL 500 MG TABLET PO PRN (21:44)
[2019-09-06] MEDS ORDERED: MAGNESIUM CITRATE 300 ML BOTTLE PO PRN (21:44)
[2019-09-06] MEDS ORDERED: MENTHOL/PHENOL 1 EACH UD MM PRN (21:44)
[2019-09-06] MEDS ORDERED: ACETAMINOPHEN 325 MG TABLET (FP) PO PRN ×2 (21:44)
[2019-09-06] MEDS: chlordiazePOXIDE HCL 25 MG CAPSULE PO SCH (23:27)
[2019-09-06] MEDS: THIAMINE HCL 100 MG TABLET (FP) PO SCH (23:28)
[2019-09-07] MEDS: chlordiazePOXIDE HCL 25 MG CAPSULE PO SCH ×4 (05:07→22:42)
[2019-09-07 09:25] LABS: HEMATOCRIT 38.1 % (35.4-49); HEMOGLOBIN 13.2 GM/dL (11.7-16.9); MCH 30.8 pg (25.7-33.7); MCHC 34.8 g/dl (32.0-35.9); MEAN CELL VOLUME 88.7 fl (80-96); MEAN PLT VOLUME 8.2 fl (7.5-11.1); PLATELET COUNT 215 K/MM3 (134-434); RBC 4.29 M/mm3 (4.00-5.60); RDW 14.5 % (11.9-15.9); WHITE BLOOD COUNT 3.9 K/mm3 (4.0-10.0)
[2019-09-07 09:30] LABS: BLOOD UREA NITROGEN 10.9 mg/dL (7-18); CALCIUM 8.7 mg/dL (8.5-10.1); CREATININE 0.7 mg/dL (0.55-1.3); POTASSIUM 3.6 mmol/L (3.5-5.1); TOT PROT 7.3 g/dl (6.4-8.2)
[2019-09-07] MEDS: PRENATAL VITAMINS W/ FOLIC ACID TABLET (FP) PO SCH (10:07)
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
--- NOTE | 2019-09-07 11:23 | PN ---
S CIWA - CIWA Score Nausea/Vomitin-Mild Nausea/No Vomiting Muscle Tremors: 4-Moderate,w/Arms Extend Anxiety: 4-Mod. Anxious/Guarded Agitation: 3 Paroxysmal Sweats: 2 Orientation: 2-Disoriented Date<2 days (date of week and day of month) Tacttile Disturbances: 1-Very Mild Itch/Numbness Auditory Disturbances: 1-Very Mild Visual Disturbances: 0-None Headache: 1-Very Mild CIWA-Ar Total Score: 19 BHS Progress Note (SOAP) Subjective: 68 years old male admitted on 09/06/19 for alcohol withdrawal sx management treated with librium detox regimen patient tolerated well ate breakfast ambulating on hallway feeling tired Objective: 09/07/19 11:20 Vital Signs Temperature 97.0 F L 09/07/19 09:34 Pulse Rate 83 09/07/19 09:34 Respiratory Rate 18 09/07/19 09:34 Blood Pressure 147/93 09/07/19 09:34 O2 Sat by Pulse Oximetry (%) Laboratory Last Values WBC 3.9 K/mm3 (4.0-10.0) L 09/07/19 07:50 RBC 4.29 M/mm3 (4.00-5.60) 09/07/19 07:50 Hgb 13.2 GM/dL (11.7-16.9) 09/07/19 07:50 Hct 38.1 % (35.4-49) 09/07/19 07:50 MCV 88.7 fl (80-96) 09/07/19 07:50 MCH 30.8 pg (25.7-33.7) 09/07/19 07:50 MCHC 34.8 g/dl (32.0-35.9) 09/07/19 07:50 RDW 14.5 % (11.9-15.9) 09/07/19 07:50 Plt Count 215 K/MM3 (134-434) 09/07/19 07:50 MPV 8.2 fl (7.5-11.1) 09/07/19 07:50 Sodium 141 mmol/L (136-145) 09/07/19 07:50 Potassium 3.6 mmol/L (3.5-5.1) 09/07/19 07:50 Chloride 104 mmol/L (98-107) 09/07/19 07:50 Carbon Dioxide 31 mmol/L (21-32) 09/07/19 07:50 Anion Gap 7 MMOL/L (8-16) L 09/07/19 07:50 BUN 10.9 mg/dL (7-18) 09/07/19 07:50 Creatinine 0.7 mg/dL (0.55-1.3) 09/07/19 07:50 Est GFR (CKD-EPI)AfAm 113.98 09/07/19 07:50 Est GFR (CKD-EPI)NonAf 98.34 09/07/19 07:50 Random Glucose 83 mg/dL (74-106) 09/07/19 07:50 Calcium 8.7 mg/dL (8.5-10.1) 09/07/19 07:50 Total Bilirubin 1.0 mg/dL (0.2-1) 09/07/19 07:50 AST 26 U/L (15-37) 09/07/19 07:50 ALT 22 U/L (13-61) 09/07/19 07:50 Alkaline Phosphatase 56 U/L (45-117) 09/07/19 07:50 Total Protein 7.3 g/dl (6.4-8.2) 09/07/19 07:50 Albumin 4.0 g/dl (3.4-5.0) 09/07/19 07:50 bp elevation history of hypertension treated with amlodipine begin amlodipine 10 mg po daily lab noted 09/07/19 11:22 Assessment: 09/07/19 11:23 alcohol withdrawal sx Plan: continue librium detox regimen
[2019-09-07] MEDS: amLODIPine BESYLATE 10 MG TABLET (FP) PO SCH (13:22)
[2019-09-07] MEDS: THIAMINE HCL 100 MG TABLET (FP) PO SCH (22:42)
[2019-09-07] MEDS: MELATONIN 5 MG TABLETS PO PRN (22:42)
[2019-09-08] MEDS: chlordiazePOXIDE HCL 25 MG CAPSULE PO SCH ×4 (05:50→22:00)
[2019-09-08 09:42] LABS: URINE APPEARANCE CLEAR; URINE BILIRUBIN NEGATIVE (NEGATIVE); URINE COLOR YELLOW; URINE GLUCOSE (UA) NEGATIVE (NEGATIVE); URINE KETONE TRACE (NEGATIVE); URINE LEUK ESTERASE NEGATIVE (NEGATIVE); URINE NITRITE NEGATIVE (NEGATIVE); URINE PROTEIN NEGATIVE (NEGATIVE); URINE UROBILINOGEN 0.2 mg/dL (0.2-1.0)
[2019-09-08] MEDS: PRENATAL VITAMINS W/ FOLIC ACID TABLET (FP) PO SCH (10:32)
[2019-09-08] MEDS: amLODIPine BESYLATE 10 MG TABLET (FP) PO SCH (10:32)
--- NOTE | 2019-09-08 12:44 | PN ---
[facility] CIWA - CIWA Score Nausea/Vomitin-Mild Nausea/No Vomiting Muscle Tremors: 4-Moderate,w/Arms Extend Anxiety: 4-Mod. Anxious/Guarded Agitation: 3 Paroxysmal Sweats: 2 Orientation: 1-Uncertain about Date Tacttile Disturbances: 0-None Auditory Disturbances: 0-None Visual Disturbances: 0-None Headache: 0-None Present CIWA-Ar Total Score: 15 S Progress Note (SOAP) Subjective: 68 years old male admitted on 09/06/19 for alcohol withdrawal sx management treated with librium detox regimen patient tolerated well ambulating on hallway chronic knee arthritis cane for ambulating Objective: 09/08/19 12:45 Vital Signs Temperature 97.1 F L 09/08/19 09:14 Pulse Rate 89 09/08/19 09:14 Respiratory Rate 16 09/08/19 09:14 Blood Pressure 100/71 09/08/19 09:14 O2 Sat by Pulse Oximetry (%) Laboratory Last Values WBC 3.9 K/mm3 (4.0-10.0) L 09/07/19 07:50 RBC 4.29 M/mm3 (4.00-5.60) 09/07/19 07:50 Hgb 13.2 GM/dL (11.7-16.9) 09/07/19 07:50 Hct 38.1 % (35.4-49) 09/07/19 07:50 MCV 88.7 fl (80-96) 09/07/19 07:50 MCH 30.8 pg (25.7-33.7) 09/07/19 07:50 MCHC 34.8 g/dl (32.0-35.9) 09/07/19 07:50 RDW 14.5 % (11.9-15.9) 09/07/19 07:50 Plt Count 215 K/MM3 (134-434) 09/07/19 07:50 MPV 8.2 fl (7.5-11.1) 09/07/19 07:50 Sodium 141 mmol/L (136-145) 09/07/19 07:50 Potassium 3.6 mmol/L (3.5-5.1) 09/07/19 07:50 Chloride 104 mmol/L (98-107) 09/07/19 07:50 Carbon Dioxide 31 mmol/L (21-32) 09/07/19 07:50 Anion Gap 7 MMOL/L (8-16) L 09/07/19 07:50 BUN 10.9 mg/dL (7-18) 09/07/19 07:50 Creatinine 0.7 mg/dL (0.55-1.3) 09/07/19 07:50 Est GFR (CKD-EPI)AfAm 113.98 09/07/19 07:50 Est GFR (CKD-EPI)NonAf 98.34 09/07/19 07:50 Random Glucose 83 mg/dL (74-106) 09/07/19 07:50 Calcium 8.7 mg/dL (8.5-10.1) 09/07/19 07:50 Total Bilirubin 1.0 mg/dL (0.2-1) 09/07/19 07:50 AST 26 U/L (15-37) 09/07/19 07:50 ALT 22 U/L (13-61) 09/07/19 07:50 Alkaline Phosphatase 56 U/L (45-117) 09/07/19 07:50 Total Protein 7.3 g/dl (6.4-8.2) 09/07/19 07:50 Albumin 4.0 g/dl (3.4-5.0) 09/07/19 07:50 Urine Color Yellow 09/08/19 08:00 Urine Appearance Clear 09/08/19 08:00 Urine pH 6.0 (5.0-8.0) 09/08/19 08:00 Ur Specific [place] 1.024 (1.010-1.035) 09/08/19 08:00 Urine Protein Negative (NEGATIVE) 09/08/19 08:00 Urine Glucose (UA) Negative (NEGATIVE) 09/08/19 08:00 Urine Ketones Trace (NEGATIVE) H 09/08/19 08:00 Urine Blood Negative (NEGATIVE) 09/08/19 08:00 Urine Nitrite Negative (NEGATIVE) 09/08/19 08:00 Urine Bilirubin Negative (NEGATIVE) 09/08/19 08:00 Urine Urobilinogen 0.2 mg/dL (0.2-1.0) 09/08/19 08:00 Ur Leukocyte Esterase Negative (NEGATIVE) 09/08/19 08:00 lab noted Assessment: 09/08/19 12:46 alcohol withdrawal sx Plan: continue librium detox regimen
--- NOTE | 2019-09-08 13:37 | PN ---
S Progress Note Note: received cardiology call that patient needs ekg order for 09/06/19 2200 pm
--- NOTE | 2019-09-08 15:20 | EKG ---
Test Reason : Blood Pressure : / mmHG Vent. Rate : 083 BPM Atrial Rate : 083 BPM P-R Int : 188 ms QRS Dur : 074 ms QT Int : 390 ms P-R-T Axes : 054 -17 038 degrees QTc Int : 458 ms NORMAL SINUS RHYTHM NORMAL ECG WHEN COMPARED WITH ECG OF 04-DEC-2018 22:17, NO SIGNIFICANT CHANGE WAS FOUND Confirmed by WARREN DUNN MD ([id number]) on 09/08/2019 3:20:05 PM Referred By: Confirmed By:WARREN DUNN MD
[2019-09-08] MEDS: THIAMINE HCL 100 MG TABLET (FP) PO SCH (21:58)
[2019-09-08] MEDS: MELATONIN 5 MG TABLETS PO PRN (21:58)
[2019-09-09] MEDS ORDERED: chlordiazePOXIDE HCL 10 MG CAPSULE PO PRN
[2019-09-09] MEDS: chlordiazePOXIDE HCL 10 MG CAPSULE PO SCH ×4 (05:26→22:03)
[2019-09-09] MEDS: PRENATAL VITAMINS W/ FOLIC ACID TABLET (FP) PO SCH (10:11)
[2019-09-09] MEDS: amLODIPine BESYLATE 10 MG TABLET (FP) PO SCH (10:11)
--- NOTE | 2019-09-09 10:57 | PN ---
[facility] CIWA - CIWA Score Nausea/Vomitin-No Nausea/No Vomiting Muscle Tremors: 4-Moderate,w/Arms Extend Anxiety: 3 Agitation: 2 Paroxysmal Sweats: 1-Minimal Palms Moist Orientation: 0-Oriented Tacttile Disturbances: 0-None Auditory Disturbances: 0-None Visual Disturbances: 0-None Headache: 0-None Present CIWA-Ar Total Score: 10 S Progress Note (SOAP) Subjective: 68 years old male admitted on 09/06/19 for alcohol withdrawal sx management treated with librium detox regimen patient tolerated well ambulating on hallway with cane steady gait Objective: 09/09/19 11:06 Vital Signs Temperature 96.2 F L 09/09/19 09:21 Pulse Rate 108 H 09/09/19 09:21 Respiratory Rate 18 09/09/19 09:21 Blood Pressure 112/75 09/09/19 09:21 O2 Sat by Pulse Oximetry (%) Laboratory Last Values WBC 3.9 K/mm3 (4.0-10.0) L 09/07/19 07:50 RBC 4.29 M/mm3 (4.00-5.60) 09/07/19 07:50 Hgb 13.2 GM/dL (11.7-16.9) 09/07/19 07:50 Hct 38.1 % (35.4-49) 09/07/19 07:50 MCV 88.7 fl (80-96) 09/07/19 07:50 MCH 30.8 pg (25.7-33.7) 09/07/19 07:50 MCHC 34.8 g/dl (32.0-35.9) 09/07/19 07:50 RDW 14.5 % (11.9-15.9) 09/07/19 07:50 Plt Count 215 K/MM3 (134-434) 09/07/19 07:50 MPV 8.2 fl (7.5-11.1) 09/07/19 07:50 Sodium 141 mmol/L (136-145) 09/07/19 07:50 Potassium 3.6 mmol/L (3.5-5.1) 09/07/19 07:50 Chloride 104 mmol/L (98-107) 09/07/19 07:50 Carbon Dioxide 31 mmol/L (21-32) 09/07/19 07:50 Anion Gap 7 MMOL/L (8-16) L 09/07/19 07:50 BUN 10.9 mg/dL (7-18) 09/07/19 07:50 Creatinine 0.7 mg/dL (0.55-1.3) 09/07/19 07:50 Est GFR (CKD-EPI)AfAm 113.98 09/07/19 07:50 Est GFR (CKD-EPI)NonAf 98.34 09/07/19 07:50 Random Glucose 83 mg/dL (74-106) 09/07/19 07:50 Calcium 8.7 mg/dL (8.5-10.1) 09/07/19 07:50 Total Bilirubin 1.0 mg/dL (0.2-1) 09/07/19 07:50 AST 26 U/L (15-37) 09/07/19 07:50 ALT 22 U/L (13-61) 09/07/19 07:50 Alkaline Phosphatase 56 U/L (45-117) 09/07/19 07:50 Total Protein 7.3 g/dl (6.4-8.2) 09/07/19 07:50 Albumin 4.0 g/dl (3.4-5.0) 09/07/19 07:50 Urine Color Yellow 09/08/19 08:00 Urine Appearance Clear 09/08/19 08:00 Urine pH 6.0 (5.0-8.0) 09/08/19 08:00 Ur Specific [place] 1.024 (1.010-1.035) 09/08/19 08:00 Urine Protein Negative (NEGATIVE) 09/08/19 08:00 Urine Glucose (UA) Negative (NEGATIVE) 09/08/19 08:00 Urine Ketones Trace (NEGATIVE) H 09/08/19 08:00 Urine Blood Negative (NEGATIVE) 09/08/19 08:00 Urine Nitrite Negative (NEGATIVE) 09/08/19 08:00 Urine Bilirubin Negative (NEGATIVE) 09/08/19 08:00 Urine Urobilinogen 0.2 mg/dL (0.2-1.0) 09/08/19 08:00 Ur Leukocyte Esterase Negative (NEGATIVE) 09/08/19 08:00 lab noted Assessment: 09/09/19 11:08 alcohol withdrawal sx Plan: continue librium detox regimen
[2019-09-09] MEDS: THIAMINE HCL 100 MG TABLET (FP) PO SCH (22:03)
[2019-09-09] MEDS: MELATONIN 5 MG TABLETS PO PRN (22:03)
[2019-09-10] MEDS: chlordiazePOXIDE HCL 10 MG CAPSULE PO SCH ×2 (05:32→17:07)
[2019-09-10] MEDS: PRENATAL VITAMINS W/ FOLIC ACID TABLET (FP) PO SCH (10:30)
[2019-09-10] MEDS: amLODIPine BESYLATE 10 MG TABLET (FP) PO SCH (10:30)
--- NOTE | 2019-09-10 10:39 | PN ---
S CIWA - CIWA Score Nausea/Vomitin-No Nausea/No Vomiting Muscle Tremors: 1-None Visible, but [place] Anxiety: 2 Agitation: 1-Slight > Activity Paroxysmal Sweats: No Perspiration Orientation: 0-Oriented Tacttile Disturbances: 0-None Auditory Disturbances: 0-None Visual Disturbances: 0-None Headache: 0-None Present CIWA-Ar Total Score: 4 BHS Progress Note (SOAP) Subjective: 68 years old male admitted on 09/06/19 for alcohol withdrawal sx management treated with librium detox regimen feeling better less tremor mild anxiety Objective: 09/10/19 10:38 Vital Signs Temperature 96.9 F L 09/10/19 09:19 Pulse Rate 93 H 09/10/19 09:19 Respiratory Rate 16 09/10/19 09:19 Blood Pressure 122/93 09/10/19 09:19 O2 Sat by Pulse Oximetry (%) Laboratory Last Values WBC 3.9 K/mm3 (4.0-10.0) L 09/07/19 07:50 RBC 4.29 M/mm3 (4.00-5.60) 09/07/19 07:50 Hgb 13.2 GM/dL (11.7-16.9) 09/07/19 07:50 Hct 38.1 % (35.4-49) 09/07/19 07:50 MCV 88.7 fl (80-96) 09/07/19 07:50 MCH 30.8 pg (25.7-33.7) 09/07/19 07:50 MCHC 34.8 g/dl (32.0-35.9) 09/07/19 07:50 RDW 14.5 % (11.9-15.9) 09/07/19 07:50 Plt Count 215 K/MM3 (134-434) 09/07/19 07:50 MPV 8.2 fl (7.5-11.1) 09/07/19 07:50 Sodium 141 mmol/L (136-145) 09/07/19 07:50 Potassium 3.6 mmol/L (3.5-5.1) 09/07/19 07:50 Chloride 104 mmol/L (98-107) 09/07/19 07:50 Carbon Dioxide 31 mmol/L (21-32) 09/07/19 07:50 Anion Gap 7 MMOL/L (8-16) L 09/07/19 07:50 BUN 10.9 mg/dL (7-18) 09/07/19 07:50 Creatinine 0.7 mg/dL (0.55-1.3) 09/07/19 07:50 Est GFR (CKD-EPI)AfAm 113.98 09/07/19 07:50 Est GFR (CKD-EPI)NonAf 98.34 09/07/19 07:50 Random Glucose 83 mg/dL (74-106) 09/07/19 07:50 Calcium 8.7 mg/dL (8.5-10.1) 09/07/19 07:50 Total Bilirubin 1.0 mg/dL (0.2-1) 09/07/19 07:50 AST 26 U/L (15-37) 09/07/19 07:50 ALT 22 U/L (13-61) 09/07/19 07:50 Alkaline Phosphatase 56 U/L (45-117) 09/07/19 07:50 Total Protein 7.3 g/dl (6.4-8.2) 09/07/19 07:50 Albumin 4.0 g/dl (3.4-5.0) 09/07/19 07:50 Urine Color Yellow 09/08/19 08:00 Urine Appearance Clear 09/08/19 08:00 Urine pH 6.0 (5.0-8.0) 09/08/19 08:00 Ur Specific [place] 1.024 (1.010-1.035) 09/08/19 08:00 Urine Protein Negative (NEGATIVE) 09/08/19 08:00 Urine Glucose (UA) Negative (NEGATIVE) 09/08/19 08:00 Urine Ketones Trace (NEGATIVE) H 09/08/19 08:00 Urine Blood Negative (NEGATIVE) 09/08/19 08:00 Urine Nitrite Negative (NEGATIVE) 09/08/19 08:00 Urine Bilirubin Negative (NEGATIVE) 09/08/19 08:00 Urine Urobilinogen 0.2 mg/dL (0.2-1.0) 09/08/19 08:00 Ur Leukocyte Esterase Negative (NEGATIVE) 09/08/19 08:00 lab noted Assessment: 09/10/19 10:38 alcohol withdrawal sx Plan: continue librium detox regimen
[2019-09-10] MEDS: THIAMINE HCL 100 MG TABLET (FP) PO SCH (22:04)
[2019-09-11] MEDS ORDERED: chlordiazePOXIDE HCL 10 MG CAPSULE PO ONE (05:00)
[2019-09-11 09:11] VITALS: BP 112/89; PULSE 108; TEMP 97.9
[2019-09-11] MEDS: PRENATAL VITAMINS W/ FOLIC ACID TABLET (FP) PO SCH (10:51)
[2019-09-11] MEDS: amLODIPine BESYLATE 10 MG TABLET (FP) PO SCH (10:51)
--- NOTE | 2019-09-11 11:53 | DS ---
[facility] Detox Discharge Summary Admission Date: 09/06/19 Discharge Date: 09/11/19 - History Present History: Alcohol Dependence Additional Comments: 68 years old male admitted on 09/06/19 for alcohol withdrawal sx management treated with librium detox regimen patient is alert oriented x 3 cardiac S1S2 regular rate rhythm respiratory clear lung bilaterally on auscultation skin warm dry - Physical Exam Results Vital Signs: Vital Signs Temperature 97.9 F 09/11/19 09:10 Pulse Rate 108 H 09/11/19 09:10 Respiratory Rate 16 09/11/19 09:10 Blood Pressure 112/89 09/11/19 09:10 O2 Sat by Pulse Oximetry (%) Pertinent Admission Physical Exam Findings: alcohol withdrawal sx Laboratory Last Values WBC 3.9 K/mm3 (4.0-10.0) L 09/07/19 07:50 RBC 4.29 M/mm3 (4.00-5.60) 09/07/19 07:50 Hgb 13.2 GM/dL (11.7-16.9) 09/07/19 07:50 Hct 38.1 % (35.4-49) 09/07/19 07:50 MCV 88.7 fl (80-96) 09/07/19 07:50 MCH 30.8 pg (25.7-33.7) 09/07/19 07:50 MCHC 34.8 g/dl (32.0-35.9) 09/07/19 07:50 RDW 14.5 % (11.9-15.9) 09/07/19 07:50 Plt Count 215 K/MM3 (134-434) 09/07/19 07:50 MPV 8.2 fl (7.5-11.1) 09/07/19 07:50 Sodium 141 mmol/L (136-145) 09/07/19 07:50 Potassium 3.6 mmol/L (3.5-5.1) 09/07/19 07:50 Chloride 104 mmol/L (98-107) 09/07/19 07:50 Carbon Dioxide 31 mmol/L (21-32) 09/07/19 07:50 Anion Gap 7 MMOL/L (8-16) L 09/07/19 07:50 BUN 10.9 mg/dL (7-18) 09/07/19 07:50 Creatinine 0.7 mg/dL (0.55-1.3) 09/07/19 07:50 Est GFR (CKD-EPI)AfAm 113.98 09/07/19 07:50 Est GFR (CKD-EPI)NonAf 98.34 09/07/19 07:50 Random Glucose 83 mg/dL (74-106) 09/07/19 07:50 Calcium 8.7 mg/dL (8.5-10.1) 09/07/19 07:50 Total Bilirubin 1.0 mg/dL (0.2-1) 09/07/19 07:50 AST 26 U/L (15-37) 09/07/19 07:50 ALT 22 U/L (13-61) 09/07/19 07:50 Alkaline Phosphatase 56 U/L (45-117) 09/07/19 07:50 Total Protein 7.3 g/dl (6.4-8.2) 09/07/19 07:50 Albumin 4.0 g/dl (3.4-5.0) 09/07/19 07:50 Urine Color Yellow 09/08/19 08:00 Urine Appearance Clear 09/08/19 08:00 Urine pH 6.0 (5.0-8.0) 09/08/19 08:00 Ur Specific [place] 1.024 (1.010-1.035) 09/08/19 08:00 Urine Protein Negative (NEGATIVE) 09/08/19 08:00 Urine Glucose (UA) Negative (NEGATIVE) 09/08/19 08:00 Urine Ketones Trace (NEGATIVE) H 09/08/19 08:00 Urine Blood Negative (NEGATIVE) 09/08/19 08:00 Urine Nitrite Negative (NEGATIVE) 09/08/19 08:00 Urine Bilirubin Negative (NEGATIVE) 09/08/19 08:00 Urine Urobilinogen 0.2 mg/dL (0.2-1.0) 09/08/19 08:00 Ur Leukocyte Esterase Negative (NEGATIVE) 09/08/19 08:00 lab noted - Treatment Hospital Course: Detox Protocol Followed, Detoxed Safely, Responded well, Discharged Condition Good, Rehab Referral Accepted [facility] - Medication Discharge Medications: Ambulatory Orders Amlodipine Besylate [Norvasc -] 10 mg PO DAILY 04/09/14 Aspirin [Aspirin EC] 81 mg PO DAILY 04/09/14 Naproxen [Naprosyn -] 500 mg PO BID 04/09/14 - Diagnosis (1) Alcohol dependence with uncomplicated withdrawal Current Visit: Yes Status: Acute (2) Essential hypertension Current Visit: Yes Status: Chronic (3) History of positive PPD Current Visit: Yes Status: Resolved (4) Pacemaker Current Visit: Yes Status: Chronic (5) Substance induced mood disorder Current Visit: Yes Status: Suspected (6) Hepatitis C Current Visit: Yes Status: Chronic Qualifiers: Viral hepatitis chronicity: carrier Qualified Code(s): B18.2 - Chronic viral hepatitis C - AMA Did Patient Leave Against Medical Advice: No CIWA Score - CIWA Score Nausea/Vomitin-No Nausea/No Vomiting Muscle Tremors: None Anxiety: 1-Mildly Anxious Agitation: 0-Normal Activity Paroxysmal Sweats: No Perspiration Orientation: 0-Oriented Tacttile Disturbances: 0-None Auditory Disturbances: 0-None Visual Disturbances: 0-None Headache: 0-None Present CIWA-Ar Total Score: 1
== END 2019-09-11 11:57 | disposition home or self-care (01) | DRG 897 ==
LOC: YASAS 16:25 → Y3N 22:19
PROVIDERS: ADMIT Allergy & Immunology; ATTEND Allergy & Immunology
PROC: HZ2ZZZZ Detoxification Services for Substance Abuse Treatment (ICD-10-PCS; principal; 2019-09-06)
DX: F10.230 Alcohol dependence with withdrawal, uncomplicated (principal); F10.24 Alcohol dependence with alcohol-induced mood disorder; F10.282 Alcohol dependence with alcohol-induced sleep disorder; F19.24 Other psychoactive substance dependence with psychoactive substance-induced mood disorder; I10 Essential (primary) hypertension; B18.2 Chronic viral hepatitis C; M13.862 Other specified arthritis, left knee; R00.1 Bradycardia, unspecified; Z95.0 Presence of cardiac pacemaker; Z86.19 Personal history of other infectious and parasitic diseases; Z88.6 Allergy status to analgesic agent; Z91.89 Other specified personal risk factors, not elsewhere classified
CPT/HCPCS: 36415; 71046-TC-FY; 80053; 81003; 85027; 93005; 93010

== ENCOUNTER 2021-05-06 08:36 | Inpatient (IN) | payer OTHER ==
[2021-05-06 09:46] VITALS: BMI 24.5
[2021-05-06] MEDS ORDERED: diazePAM 5 MG TABLET PO PRN ×2 (10:19→11:21)
[2021-05-06] MEDS ORDERED: MAG HYDROX/AL HYDROX/SIMETH 30 ML UNIT-DOSE CUP PO PRN (10:19)
[2021-05-06] MEDS ORDERED: ACETAMINOPHEN 325 MG TABLET (FP) PO PRN ×2 (10:19)
[2021-05-06] MEDS ORDERED: BISMUTH SUBSALICYLATE 524 MG/30 ML PO PRN (10:19)
[2021-05-06] MEDS ORDERED: MAGNESIUM CITRATE 300 ML BOTTLE PO PRN (10:19)
[2021-05-06] MEDS ORDERED: MENTHOL/PHENOL 1 EACH UD MM PRN (10:19)
[2021-05-06] MEDS ORDERED: IBUPROFEN 400 MG TABLET (FP) PO PRN (10:19)
[2021-05-06] MEDS ORDERED: ONDANSETRON *ODT* 4 MG TABLET SL PRN (10:19)
[2021-05-06] MEDS ORDERED: MAGNESIUM HYDROX 2400MG/30ML ORAL SUSPENSION 30 ML CUP PO PRN (10:19)
[2021-05-06] MEDS ORDERED: METHOCARBAMOL 500 MG TABLET PO PRN (10:19)
[2021-05-06] MEDS ORDERED: diazePAM 5 MG TABLET ONE (11:16)
[2021-05-06] MEDS: diazePAM 5 MG TABLET PO SCH ×3 (11:18→22:53)
[2021-05-06] MEDS: PRENATAL VITAMINS W/ FOLIC ACID TABLET (FP) PO SCH (12:03)
[2021-05-06 12:24] LABS: HEMATOCRIT 45.2 % (35.4-49); HEMOGLOBIN 14.8 GM/dL (11.7-16.9); MCHC 32.7 g/dl (32.0-35.9); MEAN CELL VOLUME 85.7 fl (80-96); MEAN PLT VOLUME 7.6 fl (7.5-11.1); PLATELET COUNT 275 10^3/uL (134-434); RBC 5.27 M/mm3 (4.00-5.60); RDW 16.2 % (11.9-15.9); WHITE BLOOD COUNT 4.7 K/mm3 (4.0-10.0)
[2021-05-06 12:36] LABS: CALCIUM 9.7 mg/dL (8.5-10.1)
[2021-05-06 12:37] LABS: BLOOD UREA NITROGEN 13.8 mg/dL (7-18)
[2021-05-06 12:40] LABS: CREATININE 0.7 mg/dL (0.55-1.3)
[2021-05-06 12:41] LABS: BILIRUBIN,TOTAL 0.2 mg/dL (0.2-1); TOT PROT 8.5 g/dl (6.4-8.2)
[2021-05-06] MEDS: hydrOXYzine PAMOATE 25 MG CAPSULE (FP) PO SCH ×3 (13:43→22:53)
[2021-05-06] MEDS: MELATONIN 5 MG TABLETS PO SCH (22:53)
[2021-05-06] MEDS: THIAMINE HCL 100 MG TABLET (FP) PO SCH (22:53)
[2021-05-07] MEDS: diazePAM 5 MG TABLET PO SCH ×4 (07:15→22:12)
[2021-05-07] MEDS: hydrOXYzine PAMOATE 25 MG CAPSULE (FP) PO SCH ×5 (07:16→22:13)
[2021-05-07] MEDS: PRENATAL VITAMINS W/ FOLIC ACID TABLET (FP) PO SCH (10:44)
[2021-05-07] MEDS: MELATONIN 5 MG TABLETS PO SCH (22:13)
[2021-05-07] MEDS: THIAMINE HCL 100 MG TABLET (FP) PO SCH (22:13)
[2021-05-08] MEDS: diazePAM 5 MG TABLET PO SCH ×3 (05:43→22:42)
[2021-05-08] MEDS: hydrOXYzine PAMOATE 25 MG CAPSULE (FP) PO SCH ×5 (05:43→22:44)
[2021-05-08] MEDS: PRENATAL VITAMINS W/ FOLIC ACID TABLET (FP) PO SCH (10:42)
[2021-05-08] MEDS: ASPIRIN COATED 81 MG TABLET.EC PO SCH (13:53)
[2021-05-08] MEDS: MELATONIN 5 MG TABLETS PO SCH (22:42)
[2021-05-08] MEDS: THIAMINE HCL 100 MG TABLET (FP) PO SCH (22:42)
[2021-05-09] MEDS: hydrOXYzine PAMOATE 25 MG CAPSULE (FP) PO SCH ×5 (05:51→22:24)
[2021-05-09] MEDS: diazePAM 5 MG TABLET PO SCH ×2 (05:52→18:28)
[2021-05-09] MEDS ORDERED: amLODIPine BESYLATE 10 MG TABLET (FP) PO SCH (10:00)
[2021-05-09] MEDS: PRENATAL VITAMINS W/ FOLIC ACID TABLET (FP) PO SCH (10:48)
[2021-05-09] MEDS: ASPIRIN COATED 81 MG TABLET.EC PO SCH (10:48)
[2021-05-09] MEDS: THIAMINE HCL 100 MG TABLET (FP) PO SCH (22:24)
[2021-05-09] MEDS: MELATONIN 5 MG TABLETS PO SCH (22:24)
[2021-05-10] MEDS ORDERED: diazePAM 5 MG TABLET PO ONE (06:00)
[2021-05-10] MEDS: hydrOXYzine PAMOATE 25 MG CAPSULE (FP) PO SCH (06:04)
[2021-05-10 06:48] VITALS: TEMP 96.9
[2021-05-10 09:23] VITALS: BP 120/86; PULSE 82
== END 2021-05-10 10:16 | disposition home or self-care (01) | DRG 897 ==
LOC: YASAS 08:36 → Y3N 10:41
PROVIDERS: ADMIT Allergy & Immunology; ATTEND Allergy & Immunology
PROC: HZ2ZZZZ Detoxification Services for Substance Abuse Treatment (ICD-10-PCS; principal; 2021-05-06)
DX: F10.230 Alcohol dependence with withdrawal, uncomplicated (principal); I10 Essential (primary) hypertension; B18.2 Chronic viral hepatitis C; M17.12 Unilateral primary osteoarthritis, left knee; R00.0 Tachycardia, unspecified; Z87.891 Personal history of nicotine dependence; Z88.6 Allergy status to analgesic agent; Z95.0 Presence of cardiac pacemaker; Z86.19 Personal history of other infectious and parasitic diseases
CPT/HCPCS: 36415; 71046-TC-FY; 80053; 85027; 86593; 86780; C9803; U0003; U0005

== ENCOUNTER 2024-07-16 11:03 | Inpatient (IN) | payer OTHER ==
[2024-07-16 11:28] VITALS: BMI 25.7
[2024-07-16] MEDS ORDERED: POLYETHYLENE GLYCOL (HEALTHYLAX) 3350 17 GM PACKET PO PRN (11:42)
[2024-07-16] MEDS ORDERED: guaiFENesin 600 MG TABLET.ER (FP) PO PRN (11:42)
[2024-07-16] MEDS ORDERED: LOPERAMIDE HCL 2 MG CAPSULE PO PRN (11:42)
[2024-07-16] MEDS ORDERED: ONDANSETRON *ODT* 4 MG TABLET SL PRN (11:42)
[2024-07-16] MEDS ORDERED: BENZOCAINE/MENTHOL (CHLORASEPTIC ) LOZENGE MM PRN (11:42)
[2024-07-16] MEDS ORDERED: MAG HYDROX/AL HYDROX/SIMETH 30 ML UNIT-DOSE CUP PO PRN (11:42)
[2024-07-16] MEDS ORDERED: ACETAMINOPHEN 325 MG TABLET (FP) PO PRN (11:42)
[2024-07-16] MEDS ORDERED: BENZONATATE 200 MG CAPSULE PO PRN (11:42)
[2024-07-16] MEDS ORDERED: MAGNESIUM HYDROX 2400MG/30ML ORAL SUSPENSION 30 ML CUP PO PRN (11:42)
[2024-07-16] MEDS ORDERED: amLODIPine BESYLATE 5 MG TABLET (FP) ONE (12:15)
[2024-07-16] MEDS: amLODIPine BESYLATE 10 MG TABLET (FP) PO SCH (12:17)
[2024-07-16] MEDS: diazePAM 5 MG TABLET PO SCH (17:01)
[2024-07-16] MEDS: MELATONIN 5 MG TABLETS PO SCH (22:10)
[2024-07-16] MEDS: THIAMINE 100 MG TABLET PO SCH (22:10)
[2024-07-17] MEDS: diazePAM 5 MG TABLET PO SCH (05:16)
[2024-07-17] MEDS: HYDROCHLOROTHIAZIDE 12.5 MG CAPSULE (FP) PO SCH (09:23)
[2024-07-17] MEDS: PRENATAL VITAMINS W/ FOLIC ACID TABLET (FP) PO SCH (09:23)
[2024-07-17] MEDS: diazePAM 5 MG TABLET PO PRN (09:24)
[2024-07-17] MEDS ORDERED: diazePAM 5 MG TABLET PO PRN (10:37)
[2024-07-17 12:26] LABS: HEMATOCRIT 47.8 % (35.4-49); HEMOGLOBIN 15.4 GM/dL (11.7-16.9); MCHC 32.3 g/dl (32.0-35.9); MEAN CELL VOLUME 83.6 fl (80-96); MEAN PLT VOLUME 8.1 fl (7.5-11.1); PLATELET COUNT 178 10^3/uL (134-434); RBC 5.72 M/mm3 (4.00-5.60); RDW 17.3 % (11.9-15.9); WHITE BLOOD COUNT 3.7 K/mm3 (4.0-10.0)
[2024-07-17 12:27] LABS: POTASSIUM 3.9 mmol/L (3.5-5.1)
[2024-07-17 12:38] LABS: ALBUMIN 3.6 g/dl (3.4-5.0); CALCIUM 9.1 mg/dL (8.5-10.1)
[2024-07-17 12:40] LABS: BILIRUBIN,TOTAL 0.5 mg/dL (0.2-1); CREATININE 0.8 mg/dL (0.55-1.3)
[2024-07-17 12:41] LABS: TOT PROT 7.2 g/dl (6.4-8.2)
[2024-07-18] MEDS: diazePAM 5 MG TABLET PO SCH (05:26)
[2024-07-18] MEDS: ASPIRIN COATED 81 MG TABLET.EC PO SCH (12:45)
[2024-07-19] MEDS: diazePAM 5 MG TABLET PO ONE (05:46)
[2024-07-19 08:54] VITALS: BP 139/94; PULSE 85; RESP 16; TEMP 98
== END 2024-07-19 11:51 | disposition home or self-care (01) | DRG 897 ==
LOC: YASAS 11:03 → Y6N 12:02
PROVIDERS: ADMIT Allergy & Immunology; ATTEND Surgery
PROC: HZ2ZZZZ Detoxification Services for Substance Abuse Treatment (ICD-10-PCS; principal; 2024-07-16)
DX: F10.230 Alcohol dependence with withdrawal, uncomplicated (principal); I10 Essential (primary) hypertension; M25.562 Pain in left knee; Z86.19 Personal history of other infectious and parasitic diseases; Z95.0 Presence of cardiac pacemaker
CPT/HCPCS: 36415; 71045-TC-FY; 80053; 80305; 80307; 85027; 86593; 86780; 93005; 93010